=== PATIENT | male | born 1945 | race Hispanic/Latino ===

== ENCOUNTER 2016-07-30 09:42 | Outpatient (CLI) | payer MEDICARE, OTHER | END 2016-07-30 09:43 | disposition home or self-care (01) | LOC: LABHHL 09:42 | PROVIDERS: ATTEND Internal Medicine Hematology & Oncology | DX: C78.7 Secondary malignant neoplasm of liver and intrahepatic bile duct (principal) | CPT/HCPCS: 88271 ==